=== PATIENT | female | born 1970 | race African-American/Black ===

== ENCOUNTER 2018-09-29 13:25 | Outpatient (CLI) | payer MEDICARE, OTHER ==
[2018-09-18 12:01] VITALS: BP 168/131
[2018-09-29 14:11] LABS: eGFR (Non-African) > 60
== END 2018-09-29 13:27 ==
LOC: LAB 13:25
PROVIDERS: ATTEND Family Medicine
DX: E11.9 Type 2 diabetes mellitus without complications (principal)
CPT/HCPCS: 36415; 80048; 83036

== ENCOUNTER 2019-04-11 09:58 | Outpatient (CLI) | payer MEDICARE, OTHER ==
[2018-09-18 12:01] VITALS: BP 168/131
[2019-04-11 10:39] LABS: A1C 6.8 % (<5.7)
[2019-04-11 11:11] LABS: eGFR (Non-African) 31
== END 2019-04-11 10:03 ==
LOC: LAB 09:58
PROVIDERS: ATTEND Nurse Practitioner
DX: E11.65 Type 2 diabetes mellitus with hyperglycemia (principal)
CPT/HCPCS: 36415; 80053; 82043; 82570; 83036

== ENCOUNTER 2019-04-12 05:23 | Emergency (ER) | payer MEDICARE, OTHER ==
[2019-04-12 05:51] VITALS: BP 138/75
--- NOTE | 2019-04-12 05:59 | ED Physician Documentation ---
Abdominal Pain - HISTORIAN Historian: patient - HPI Stated Complaint: abdominal pain/nausea X 1 week Chief Complaint: Abdominal Pain Additonal Information: Patient presents to ED with a 1 week history of epigastric abdominal pain and nausea. Patient states the pain is 2/10, dullache most of the time, with fleeting moments of sharp stabbing pain associated with nausea. She has a history of pancreatitis in September 2018. She is also diabetic. Patient reports having labs drawn here yesterday, however, it was only a chemistry panel. Patient is also diabetic. Onset: days ago (7) Duration: waxing, waning Timing: still present Context: denies: out of country travel Severity: mild Quality: pain, aching, dull, sharp Associated Symptoms: nausea. denies: fever, chills, vomiting Exacerbated by: nothing Relieved by: nothing Further Comments: no - ROS CONST: no problems GI/: none CVS/RESP: none EYES/ENT: none MS/SKIN/LYMPH: denies: leg swelling NEURO/PSYCH: denies: headache - SOCIAL HX Smoking History: non-smoker Alcohol Use: none Drug Use: none - FAMILY HX Family History: none - PAST HX Past History: other (pancreatitis, DM2) Ischemic Bowel Risk Factors: none Other History: none Surgeries/Procedures: none Home Medications: Ambulatory Orders Medication Instructions Recorded Fentanyl 1 mcg TD Q72H 09/18/18 Hydrocodone/Acetaminophen 1 each PO Q6H PRN 09/18/18 [Hydrocodon-Acetaminoph 7.5-325] Lisinopril/Hydrochlorothiazide 1 each PO DAILY 09/18/18 [Zestoretic] Insulin Aspart [Novolog Flexpen] 6 units SQ ACHS 04/12/19 Insulin Detemir (Nf) [Levemir 70 units SQ DAILY 04/12/19 Flex-Pen (Nf)] Allergies/Adverse Reactions: Allergies Allergy/AdvReac Type Severity Reaction Status Date / Time No Known Allergies Allergy Verified 09/18/18 01:25 - VITAL SIGNS Vital Signs: Vital Signs Temp Pulse Resp BP Pulse Ox 98.4 F 96 H 14 138/75 96 04/12/19 05:35 04/12/19 05:35 04/12/19 05:35 04/12/19 05:35 04/12/19 05:35 - REVIEWED ASSESSMENTS Nursing Assessment Reviewed: Yes Vitals Reviewed: Yes ED Results Lab/Radiology - Orders Orders: ED Orders Category Date Time Status Place IV Lock 1T Care 04/12/19 06:07 Active CBC/PLATELET/DIFF Routine Lab 04/12/19 Ordered CMP Routine Lab 04/12/19 Ordered LIPASE Stat Lab 04/12/19 Ordered THYROID PANEL (TSH, FT3, FT4) Stat Lab 04/12/19 Ordered TROPONIN I Stat Lab 04/12/19 Ordered UA W/MICRO IF INDICATED Routine Lab 04/12/19 06:09 Ordered UDS [DRUG SCREEN URINE MEDICAL ONLY] Routine Lab 04/12/19 Ordered 0.9 % Sodium Chloride [Normal Saline] 1,000 ml Med 04/12/19 06:11 Discontinued IV Q1H Ondansetron HCl/Pf [Zofran] Med 04/12/19 06:11 Discontinued 4 mg IVP NOW ONE Abdominal Pain Physical Exam - Physical Exam General Appearance: no acute distress, alert EENT: PANCHO NECK: supple RESPIRATORY: no resp distress, chest non-tender, breath sounds normal CVS: reg rate & rhythm ABDOMEN: soft, normal bowel sounds, tenderness (epigastric) BACK: normal inspection, no CVA tenderness SKIN: warm/dry, normal color EXTREMITIES: non-tender, no edema NEURO: oriented X3, mood/affect nml Vital Signs: Vital Signs Temp Pulse Resp BP Pulse Ox 98.4 F 96 H 14 138/75 96 04/12/19 05:35 04/12/19 05:35 04/12/19 05:35 04/12/19 05:35 04/12/19 05:35 Discharge Clincal Impression: Abdominal pain Qualifiers: Abdominal location: epigastric Qualified Code(s): R10.13 - Epigastric pain Referrals: Primary Doctor,No [Primary Care Provider] - 2 Days Condition: Stable Disposition: AGAINST MEDICAL ADVICE Decision to Admit: NO Date of Decison to Admit: 04/12/19 Decision Time: 06:35
[2019-04-12] MEDS ORDERED: ONDANSETRON HCL/PF 4 MG/ 2ML VIAL IVP ONE (06:11)
[2019-04-12] MEDS ORDERED: 0.9 % SODIUM CHLORIDE 1,000 ML IV ONE (06:11)
== END 2019-04-12 06:35 | disposition left against medical advice (07) ==
LOC: ED 05:23
DX: R10.13 Epigastric pain (principal)
CPT/HCPCS: 96361; 96374; 99282; 99284; S1016